=== PATIENT | female | born 1960 | race Two or more races ===

== ENCOUNTER 2019-07-04 09:13 | Outpatient (CLI) | payer OTHER | END 2019-07-04 09:18 | disposition home or self-care (01) | LOC: SONOGRAMA 09:13 | DX: E04.1 Nontoxic single thyroid nodule (principal) ==

== ENCOUNTER 2024-04-18 08:56 | Outpatient (CLI) | payer OTHER | END 2024-04-18 08:59 | disposition home or self-care (01) | LOC: SONOGRAMA 08:56 | PROVIDERS: ATTEND Pathology Anatomic Pathology & Clinical Pathology | DX: D44.0 Neoplasm of uncertain behavior of thyroid gland (principal); E03.8 Other specified hypothyroidism ==